=== PATIENT | male | born 1985 | race American Indian/Alaskan Native ===

== ENCOUNTER 2021-10-13 12:22 | Emergency (ER) | payer OTHER ==
[2021-10-13 12:32] VITALS: BP 133/78
[2021-10-13] MEDS ORDERED: HYDROcodone/ACETAMINOPHEN 10-325MG TAB PO ONE (12:45)
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
== END 2021-10-13 14:48 | disposition home or self-care (01) ==
LOC: ED 12:22
DX: S39.92XA Unspecified injury of lower back, initial encounter (principal); S13.4XXA Sprain of ligaments of cervical spine, initial encounter; S00.93XA Contusion of unspecified part of head, initial encounter; V89.2XXA Person injured in unspecified motor-vehicle accident, traffic, initial encounter; Y93.89 Activity, other specified; Y92.89 Other specified places as the place of occurrence of the external cause; Y99.8 Other external cause status
CPT/HCPCS: 70450; 72072; 72125; 99284